=== PATIENT | female | born 2000 | race Caucasian/White ===

== ENCOUNTER 2023-05-03 10:35 | Emergency (ER) | payer MEDICAID ==
[~2023-05-03] VITALS: Ht 165.1 cm; Wt 105.0 kg
--- NOTE | 2023-05-03 13:32 | NUR ---
WORKDAY SENIOR ASSOCIATE ASSESSMENT REVIEWED, BY DIANELYS RN; APPROVED
[2023-05-03] MEDS ORDERED: FLUC150T PO (13:44)
[2023-05-03] MEDS ORDERED: DOXY-135 PO (13:44)
[2023-05-03 14:15] VITALS: BP 122/78; PULSE 70; RESP 16; TEMP 98.3; O2SAT 96
== END 2023-05-03 14:18 | disposition home or self-care (01) ==
LOC: ER 10:36
DX: B37.31 Acute candidiasis of vulva and vagina (principal); N76.0 Acute vaginitis
CPT/HCPCS: 99283